=== PATIENT | male | born 1975 | race African-American/Black ===

== ENCOUNTER 2018-07-08 12:17 | Emergency (ER) | payer MEDICAID ==
[~2018-07-08] VITALS: Ht 193 cm; Wt 86.4 kg
[2018-07-08 12:30] VITALS: Ht 193 cm; Wt 86.4 kg
[2018-07-08] MEDS ORDERED: PROZAC40 MG PO ×2 (12:31→13:18)
[2018-07-08] MEDS ORDERED: SEROQUEL400 MG PO (12:31)
[2018-07-08] MEDS ORDERED: MINIPRESS 5 MG C5 MG PO (12:33)
[2018-07-08] MEDS ORDERED: BUSPAR10 MG PO (12:34)
[2018-07-08] MEDS ORDERED: SEROQUEL200 MG PO (13:18)
[2018-07-08] MEDS ORDERED: DOXEPIN HCL10 MG PO (13:18)
[2018-07-08 13:28] VITALS: BP 138/73
== END 2018-07-08 13:29 | disposition home or self-care (01) ==
LOC: D.ER 12:17
DX: F43.10 Post-traumatic stress disorder, unspecified (principal); X58.XXXA Exposure to other specified factors, initial encounter; Y93.89 Activity, other specified; Y92.019 Unspecified place in single-family (private) house as the place of occurrence of the external cause; I10 Essential (primary) hypertension; F17.200 Nicotine dependence, unspecified, uncomplicated

== ENCOUNTER 2018-09-11 14:27 | Emergency (ER) | payer MEDICAID ==
[~2018-09-11] VITALS: Ht 193 cm; Wt 89.5 kg
[~2018-09-11 14:27] MED LIST: BUSPAR10 MG PO; DOXEPIN HCL10 MG PO; MINIPRESS 5 MG C5 MG PO; PROZAC40 MG PO; SEROQUEL200 MG PO; SEROQUEL400 MG PO
[2018-09-11 14:45] VITALS: Ht 193 cm; Wt 89.5 kg
[2018-09-11 15:13] LABS: BASOPHILS 0.6 % (0-2); EOSINOPHILS 2.3 % (0-7); HEMATOCRIT 43.5 % (42.0-54.0); HEMOGLOBIN 15.7 g/dL (13.5-17.5); IMMATURE GRANULOCYTES 0.1 % (0-5); LYMPHOCYTES 21.3 % (15-50); MCH 33.4 pg (26.0-34.0); MCHC 36.1 g/dL (31.0-37.0); MCV 92.6 fL (80.0-100.0); MEAN PLATELET VOLUME 9.7 fL (7.4-10.4); MONOCYTES 8.4 % (2-11); NEUTROPHILS 67.3 % (40-80); PLATELET COUNT 273 10x3/uL (130-400); RDW 11.6 % (11.5-14.5); WBC 9.5 10x3/uL (4.8-10.8)
[2018-09-11 15:28] LABS: APTT 26.6 SECONDS (22.8-39.4); INR 1.15 (0.85-1.17); PROTIME 14.2 SECONDS (11.6-15.0)
[2018-09-11 15:37] LABS: ALBUMIN 4.1 g/dL (3.4-5.0); ALKALINE PHOSPHATASE 47 U/L (46-116); ALT (SGPT) 18 U/L (10-68); BILIRUBIN - TOTAL 0.95 mg/dL (0.2-1.3); CALC OSMOLALITY 266 mosm/kg (275-300); CALCIUM 8.4 mg/dL (8.5-10.1); CARBON DIOXIDE 26.2 mmol/L (21.0-32.0); CHLORIDE - SERUM 98 mmol/L (98-107); CREATININE - SERUM 0.8 mg/dL (0.6-1.3); GLUCOSE 100 mg/dL (74-106); POTASSIUM - SERUM 3.8 mmol/L (3.5-5.1); SODIUM 134 mmol/L (136-145); UREA NITROGEN 10 mg/dL (7-18); eGFR NON AFRICAN AMERICAN > 90 mL/min (90-120)
[2018-09-11 15:47] LABS: CKMB 3.6 U/L (0.0-3.6); CREATINE KINASE 234 UL (21-232); TROPONIN-I < 0.017 ng/mL (0.000-0.060)
[2018-09-11] MEDS ORDERED: BUSPAR10 MG PO (17:13)
[2018-09-11] MEDS ORDERED: ZPAK PO (17:13)
[2018-09-11] MEDS ORDERED: SEROQUEL400 MG PO (17:13)
[2018-09-11] MEDS ORDERED: DOXEPIN HCL10 MG PO (17:13)
[2018-09-11] MEDS ORDERED: ALBUTEROL SULF8.5 GM INH (17:15)
[2018-09-11 17:39] VITALS: BP 130/68
== END 2018-09-11 17:40 | disposition home or self-care (01) ==
LOC: D.ER 14:27
PROVIDERS: Family Medicine
DX: R07.9 Chest pain, unspecified (principal)